=== PATIENT | female | born 1990 | race Caucasian/White ===

== ENCOUNTER 2016-12-08 07:23 | Emergency (ER) | payer OTHER ==
[2016-12-08 07:29] VITALS: BP 124/82
[2016-12-08] MEDS ORDERED: DEXAMETHASONE 10 MG/ML VIAL PO STA (08:06)
--- NOTE | 2016-12-08 08:09 | ED Physician Documentation ---
PD HPI URI - Stated complaint Stated Complaint: MIGRAINE/COUGH - Chief complaint Chief Complaint: Neuro - History obtained from History obtained from: Patient - History of Present Illness Timing - onset: How many weeks ago (2) Timing duration: Weeks (2) Timing details: Gradual onset, Still present, Waxing and waning Associated symptoms: Chills, Ear pain, Nasal congestion, Rhinorrhea, Sinus pain , Sore throat, Dry cough, Other (headache) Contributing factors: Sick contact (children at home are sick with similar) Improves by: Rest, Medication Worsened by: Activity Similar symptoms before: Diagnosis (URI) Recently seen: Not recently seen - Additional information Additional information: 25-year-old [employer] [place] female has developed a cough and congestion with some sinus pressure as well. Her symptoms were well-controlled when this initially developed until last night when suddenly her symptoms are not well controlled she has headache related to coughing paroxysms and marked congestion as well as ear pain. She does have some sore throat as well. There are 2 small children ages 4 and 5 at her home that are sick with similar. Review of Systems Constitutional: reports: Chills, Myalgias, Fatigue. denies: Fever Eyes: denies: Decreased vision Ears: reports: Ear pain Nose: reports: Rhinorrhea / runny nose, Congestion, Sinus pressure / pain Throat: reports: Sore throat Cardiac: denies: Chest pain / pressure, Palpitations Respiratory: reports: Cough. denies: Dyspnea GI: reports: Nausea. denies: Abdominal Pain, Vomiting : denies: Dysuria, Frequency Skin: denies: Rash Musculoskeletal: denies: Neck pain, Back pain, Extremity pain Neurologic: reports: Headache. denies: Generalized weakness, Focal weakness, Numbness, Head injury, LOC PD PAST MEDICAL HISTORY - Past Surgical History Past Surgical History: Yes HEENT: Tonsil/Adenoidectomy - Present Medications Home Medications: Ambulatory Orders Medication Instructions Recorded Confirmed Azithromycin [Zithromax] 250 mg PO DAILY #6 tablet 12/08/16 - Allergies Allergies/Adverse Reactions: Allergies Allergy/AdvReac Type Severity Reaction Status Date / Time latex Allergy Unknown Verified 12/27/14 16:17 - Social History Does the pt smoke?: Yes Smoking Status: Current every day smoker Does the pt drink ETOH?: Yes Does the pt have substance abuse?: No - Immunizations Immunizations are current?: Yes PD ED PE NORMAL - Vitals Vital signs reviewed: Yes (hypertensive ) - General General: No acute distress, Well developed/nourished - HEENT HEENT: Atraumatic, PERRL, EOMI, Other - Neck Neck: Supple, no meningeal sign, No bony TTP (The right TM is mildly inflamed the left is clear the pharynx is with generalized erythema mild edema to the uvula.) - Cardiac Cardiac: RRR, No murmur - Respiratory Respiratory: No respiratory distress, Clear bilaterally - Abdomen Abdomen: Soft, Non tender - Back Back: No CVA TTP, No spinal TTP - Derm Derm: Normal color, Warm and dry, No rash - Extremities Extremities: No deformity, No edema - Neuro Neuro: No motor deficit, No sensory deficit - Psych Psych: Normal mood, Normal affect Results - Vitals Vitals: Vital Signs - 24 hr 12/08/16 07:26 Temperature 36.3 C L Heart Rate 69 Respiratory 16 Rate Blood Pressure 124/82 H O2 Saturation 96 Oxygen O2 Source Room air PD MEDICAL DECISION MAKING - ED course Complexity details: reviewed old records, considered differential, d/w patient ED course: 25-year-old female with cough congestion has right otitis and here in the emergency department she is given dexamethasone 10 mg and we will place her on some azithromycin. Departure - Departure Disposition: 01 Home, Self Care Clinical Impression: Otitis media Qualifiers: Otitis media type: suppurative Laterality: right Chronicity: acute Recurrence: not specified as recurrent Spontaneous tympanic membrane rupture: without spontaneous rupture Qualified Code(s): H66.001 - Acute suppurative otitis media without spontaneous rupture of ear drum, right ear Condition: Stable Instructions: ED Otitis Media Acute Adult Follow-Up: [facility] [Provider Group] Prescriptions: Azithromycin [Zithromax] 250 mg PO DAILY #6 tablet Comments: Today in the Emergency Department your blood pressure was elevated. This can happen from the stress of the visit itself, from a current illness or circumstance or from uncontrolled hypertension. If you take blood pressure medications take your usual mediations, have your blood pressure re-checked in an appropriate setting and follow up any elevation with your primary care doctor. Forms: Activity restrictions
[2016-12-08] MEDS ORDERED: CHERRY SYRUP 10 ML UDC PO ONE (08:10)
[2016-12-08] MEDS ORDERED: DEXAMETHASONE 10 MG/ML VIAL ONE (08:10)
== END 2016-12-08 08:20 | disposition home or self-care (01) ==
LOC: ED 07:23
DX: H66.001 Acute suppurative otitis media without spontaneous rupture of ear drum, right ear (principal); F17.200 Nicotine dependence, unspecified, uncomplicated
CPT/HCPCS: 99283; A9270

== ENCOUNTER 2017-01-23 17:46 | Emergency (ER) | payer OTHER ==
[2017-01-23] MEDS ORDERED: KETOROLAC 60 MG/2 ML VIAL IM STA (18:03)
--- NOTE | 2017-01-23 18:06 | ED Physician Documentation ---
PD HPI BACK PAIN - Stated complaint Stated Complaint: BACK PX - Chief complaint Chief Complaint: Back Pain - History obtained from History obtained from: Patient, Family - History of Present Illness Timing - onset: How many days ago (3) Timing - duration: Days (3) Timing - details: Gradual onset Pain level max: 8 Pain level now: 4 Location: Lower, Right Quality: Pain, Spasm Associated symptoms: No: Fever, Weakness, Numbness, Incontinent of urine, Unable to urinate, Hematuria, Incontinent of stool Improves with: Rest, Meds (motrin, robaxin helped at home. Now the medications are wearing off.) Worsened by: Movement, Lifting, Twisting Contributing factors: Other (states wears a heavy pack at work and stands on concrete all day.). No: Trauma, Anticoagulated, Cancer, IVDA Similar symptoms before: Has not had sx before Review of Systems Constitutional: denies: Fever, Chills Respiratory: denies: Cough GI: denies: Abdominal Pain, Vomiting : denies: Dysuria, Frequency, Hesitancy, Discharge, Now EGA Skin: denies: Rash Musculoskeletal: denies: Neck pain Neurologic: denies: Focal weakness, Numbness, Headache PD PAST MEDICAL HISTORY - Past Medical History Past Medical History: No - Past Surgical History Past Surgical History: Yes HEENT: Tonsil/Adenoidectomy - Present Medications Home Medications: Ambulatory Orders Medication Instructions Recorded Confirmed Ibuprofen [Motrin] 800 mg PO Q8H PRN #30 tablet 01/23/17 Methocarbamol [Robaxin-750] 750 mg PO Q8H PRN #14 tablet 01/23/17 - Allergies Allergies/Adverse Reactions: Allergies Allergy/AdvReac Type Severity Reaction Status Date / Time latex Allergy Unknown Verified 01/23/17 17:57 - Social History Does the pt smoke?: Yes Smoking Status: Current every day smoker Does the pt drink ETOH?: Yes Does the pt have substance abuse?: No - Immunizations Immunizations are current?: Yes PD ED PE NORMAL - Vitals Vital signs reviewed: Yes - General General: Alert and oriented X 3, No acute distress - Neck Neck: Supple, no meningeal sign, No bony TTP - Cardiac Cardiac: RRR - Respiratory Respiratory: No respiratory distress, Clear bilaterally - Abdomen Abdomen: Soft, Non tender, Non distended - Back Back: No CVA TTP, No spinal TTP, Other (Paraspinal muscle spasm bilateral low lumbar. No midline tenderness to palpation or percussion.) - Derm Derm: Warm and dry - Extremities Extremities: No tenderness to palpate, Other (normal bilateral lower extremity patellar and ankle jerk reflexes. Normal great toe extension bilaterally) - Neuro Neuro: Alert and oriented X 3, territory account executive 2-12 intact, No motor deficit, No sensory deficit, Normal speech - Psych Psych: Normal mood, Normal affect Results - Vitals Vitals: Vital Signs - 24 hr 01/23/17 01/23/17 17:52 18:39 Temperature 36.9 C Heart Rate 93 79 Respiratory 16 18 Rate Blood Pressure 112/79 114/82 H O2 Saturation 99 99 Oxygen O2 Source Room air PD MEDICAL DECISION MAKING - ED course Complexity details: considered differential (normal bilateral lower extremity patellar and ankle jerk reflexes. Normal great toe extension bilaterally), d/w patient, d/w family ED course: Patient is a 26-year-old female with what sounds like musculoskeletal low back pain. No abdominal tenderness. No evidence of pelvic origin. Not . No evidence of ectopic. Pain greatly improved with Robaxin and Motrin at home, will prescribe this for her again and see how she progresses. Patient counseled regarding signs and symptoms for which I believe and urgent re- evaluation would be necessary. Patient with good understanding of and agreement to plan and is comfortable going home at this time This document was made in part using voice recognition software. While efforts are made to proofread this document, sound alike and grammatical errors may occur. Departure - Departure Disposition: 01 Home, Self Care Clinical Impression: Back strain Qualifiers: Encounter type: initial encounter Qualified Code(s): S39.012A - Strain of muscle, fascia and tendon of lower back, initial encounter Condition: Good Instructions: ED Low Back Pain Injury Follow-Up: your,doctor in 1 week [Other] Prescriptions: Ibuprofen [Motrin] 800 mg PO Q8H PRN #30 tablet PRN Reason: PAIN &/OR FEVER Methocarbamol [Robaxin-750] 750 mg PO Q8H PRN #14 tablet PRN Reason: back spasm Comments: Return if you worsen. Do not drive or operate heavy machinery while taking the Robaxin. Forms: Activity restrictions Discharge Date/Time: 01/23/17 18:39
[2017-01-23] MEDS ORDERED: KETOROLAC 60 MG/2 ML VIAL ONE (18:18)
[2017-01-23 18:41] VITALS: BP 114/82
== END 2017-01-23 18:39 | disposition home or self-care (01) ==
LOC: ED 17:46
DX: S39.012A Strain of muscle, fascia and tendon of lower back, initial encounter (principal); X58.XXXA Exposure to other specified factors, initial encounter; F17.200 Nicotine dependence, unspecified, uncomplicated
CPT/HCPCS: 96372; 99282; 99284